=== PATIENT | female | born 1990 | race Caucasian/White ===

== ENCOUNTER 2020-12-23 11:30 | Outpatient (CLI) | payer MEDICAID, SELFPAY ==
[2020-12-23 11:56] LABS: Basophils % 0.7 %; Eosinophils # 0.5 10^3/uL (0.0-0.8); Eosinophils % 8.6 %; Hematocrit 38.9 % (37.0-47.0); Hemoglobin 12.4 g/dL (11.5-15.3); Lymphocytes % 33.4 %; Mean Corpuscular HGB Conc 31.9 g/dL (30.0-36.0); Mean Corpuscular Hemoglobin 28.9 pg (28.0-34.0); Mean Corpuscular Volume 90.7 fl (81-99); Mean Platelet Volume 9.8 fL (7.4-10.4); Monocytes # 0.6 10^3/uL (0.2-0.9); Monocytes % 9.8 %; Neutrophils # 2.77 10^3/uL (1.8-7.7); Neutrophils % 47.3 %; Nucleated Red Blood Cells % 0 %; Platelet Count 244 10^3/cmm (130-400); Red Blood Count 4.29 10^6/uL (4.1-5.3); White Blood Count 5.8 10^3/uL (4.0-10.0)
[2020-12-23 12:45] LABS: Alanine Aminotransferase 112 U/L (0-33); Albumin Level 3.9 g/dL (3.5-5.2); Alkaline Phosphatase 62 IU/L (35-105); Anion Gap 12.5 (5-19); Aspartate Amino Transferase 77 U/L (0-32); Blood Urea Nitrogen 15 mg/dL (6-20); C Reactive Protein 1.4 mg/L (0.0-4.9); Calcium 9.1 mg/dL (8.5-10.5); Carbon Dioxide 28 mmol/L (22-29); Chloride 104 mmol/L (98-107); Globulin 3.1 g/dL (1.3-4.6); Glomerular Filtration Rate 145.9 mL/min (90-130); Glucose 107 mg/dL (65-115); Osmolality Calculated 291 mOsm/kg (285-295); Potassium 4.5 mmol/L (3.5-5.1); Sodium 140 mmol/L (136-145); Thyroid Stimulating Hormone 2.17 uIU/mL (0.27-4.20); Total Bilirubin 0.2 mg/dL (0.15-1.2)
== END 2020-12-23 11:31 | disposition home or self-care (01) ==
LOC: LAB 11:35
PROVIDERS: Visit Provider Family Medicine
DX: F19.90 Other psychoactive substance use, unspecified, uncomplicated (principal); N30.90 Cystitis, unspecified without hematuria; R20.2 Paresthesia of skin
CPT/HCPCS: 36415; 80053; 81000; 81025; 84443; 85025; 86140; 87040; 87077; 87086; 87184